=== PATIENT | female | born 1985 | race Caucasian/White ===

== ENCOUNTER 2021-03-02 13:42 | Inpatient (IN) | payer BC, OTHER ==
[2021-03-02] MEDS ORDERED: BUTORPHANOL TARTRATE 1 MG/ML VIAL IVPB PRN (16:35)
[2021-03-02 16:49] VITALS: BMI 28.9
[2021-03-02 16:57] LABS: BASO % 0.7 % (0-2.0); EOS % 0.3 % (0-4.5); HEMATOCRIT 35.5 % (32.4-45.2); HEMOGLOBIN 12.4 GM/dL (10.7-15.3); LYMPH % 30.6 % (8-40); MEAN CELL VOLUME 97.3 fl (80-96); MEAN PLT VOLUME 9.8 fl (7.5-11.1); MONO % 6.5 % (3.8-10.2); NEUT % 61.9 % (42.8-82.8); PLATELET COUNT 228 10^3/uL (134-434); RBC 3.65 M/mm3 (3.60-5.2); RDW 14.3 % (11.6-15.6)
[2021-03-02 17:05] LABS: INR 0.8 (0.83-1.09); PROTHROMBIN TIME (PATIENT) 9.8 SEC (9.7-13.0)
[2021-03-02 17:08] LABS: ACTIVATED PTT 23.5 SECONDS (25.2-36.5)
[2021-03-02 17:13] LABS: BLOOD UREA NITROGEN 14.4 mg/dL (7-18); CALCIUM 8.4 mg/dL (8.5-10.1)
[2021-03-02] MEDS: ELECTROLYTE-148 SOLN 1,000 ML IV SCH (19:35)
[2021-03-02] MEDS ORDERED: OXYTOCIN 30 UNITS in 0.9% NS 30 UNIT/500 ML INFUS.BAG IVPB ONE (20:58)
[2021-03-02] MEDS: OXYTOCIN 30 UNITS in 0.9% NS 30 UNIT/500 ML INFUS.BAG IVPB SCH (21:00)
[2021-03-02] MEDS ORDERED: AMPICILLIN SODIUM 2 GM VIAL ONE (22:55)
[2021-03-02] MEDS ORDERED: AMPICILLIN - 2 GM in SODIUM CHLORIDE 100 ML IVPB ONE (23:00)
[2021-03-02] MEDS ORDERED: FENTANYL/BUPIVACAINE/NS/PF - PCEA - 50 ML DISP.SYRIN EP ONE ×2 (23:07→23:22)
[2021-03-02] MEDS ORDERED: PCA PUMP NR ONE (23:22)
[2021-03-02] MEDS ORDERED: BUPIVACAINE HCL/PF 0.25% (2.5MG/ML) 10 ML VIAL ONE (23:24)
[2021-03-02] MEDS ORDERED: NALOXONE HCL 0.4 MG/ML VIAL IVPUSH PRN (23:26)
[2021-03-03] MEDS ORDERED: BUTORPHANOL TARTRATE 2 MG/ML VIAL ONE ×2 (00:12→04:17)
[2021-03-03] MEDS: BUTORPHANOL TARTRATE 1 MG/ML VIAL IVPB PRN ×2 (00:20→04:25)
[2021-03-03] MEDS: FENTANYL/BUPIVACAINE/NS/PF - PCEA - 50 ML DISP.SYRIN EP SCH ×2 (00:27→07:20)
[2021-03-03] MEDS ORDERED: AMPICILLIN SODIUM 1 GM VIAL ONE ×2 (02:58→06:24)
[2021-03-03] MEDS: AMPICILLIN - 1 GM in SODIUM CHLORIDE 100 ML IVPB SCH ×3 (03:00→11:00)
[2021-03-03] MEDS: ELECTROLYTE-148 SOLN 1,000 ML IV SCH ×2 (04:00→19:11)
[2021-03-03] MEDS ORDERED: BUPIVACAINE HCL/PF 0.25% (2.5MG/ML) 10 ML VIAL ONE (07:06)
[2021-03-03] MEDS ORDERED: FENTANYL/BUPIVACAINE/NS/PF - PCEA - 50 ML DISP.SYRIN EP ONE (07:07)
[2021-03-03] MEDS ORDERED: PCA PUMP NR ONE (07:07)
[2021-03-03] MEDS ORDERED: morphine SULFATE/Preservative Free 0.5 MG/ML (1cc Syringe) ONE (11:07)
[2021-03-03] MEDS ORDERED: SUCCINYLCHOLINE CHLORIDE 200 MG/10 ML SYRINGE ONE (11:07)
[2021-03-03] MEDS ORDERED: PHENYLEPHRINE HCL 10 MG/1 ML SINGLE DOSE VIAL ONE ×2 (11:07)
[2021-03-03] MEDS ORDERED: PROPOFOL 20 ML ONE (11:07)
[2021-03-03] MEDS ORDERED: ONDANSETRON 4 MG/2 ML VIAL ONE (11:08)
[2021-03-03] MEDS ORDERED: ceFAZolin SODIUM 1 GM VIAL ONE (11:08)
[2021-03-03] MEDS ORDERED: OXYTOCIN 10 UNIT/ML 10ML MDV ONE (11:33)
[2021-03-03 12:13] LABS: POC NITRAZINE NEG
[2021-03-03 12:14] LABS: POC NITRAZINE NEG
[2021-03-03] MEDS ORDERED: SIMETHICONE 80 MG TAB.CHEW (FP) PO PRN (12:19)
[2021-03-03] MEDS ORDERED: IBUPROFEN 800 MG/8 ML IJ IVPB PRN (12:19)
[2021-03-03] MEDS ORDERED: METHYLERGONOVINE MALEATE 0.2 MG/1 ML AMP IM PRN (12:19)
[2021-03-03] MEDS ORDERED: WITCH HAZEL 50% (TUCKS) 40 PAD/JAR PAD TP PRN (12:19)
[2021-03-03] MEDS ORDERED: BENZOCAINE 20% 57 GM BOTTLE TP PRN (12:19)
[2021-03-03] MEDS ORDERED: ACETAMINOPHEN 325 MG TABLET (FP) PO PRN (12:19)
[2021-03-03] MEDS ORDERED: BENZOCAINE 28 GM HEMORRHOIDAL OINTMENT PR PRN (12:19)
[2021-03-03] MEDS ORDERED: diphenhydrAMINE HCL 25 MG CAPSULE (FP) PO PRN (12:19)
[2021-03-03 12:22] LABS: CORD BASE EXCESS -10.1 mmol/L (0-2); CORD HCO3 20.6 mmHg (20-29); CORD PCO2 66.2 mmHg (30-78); CORD pH 7.111 (7.14-7.44)
[2021-03-03 12:26] LABS: CORD BASE EXCESS -7.9 mmol/L (0-2); CORD HCO3 18.6 mmHg (20-29); CORD PCO2 41.3 mmHg (30-78); CORD pH 7.271 (7.14-7.44)
[2021-03-03] MEDS ORDERED: morphine SULFATE/PF 1 MG/2 ML (2cc Syringe - QUVA) EP ONE (12:26)
[2021-03-03] MEDS ORDERED: ONDANSETRON 4 MG/2 ML VIAL IVPUSH PRN (12:26)
[2021-03-03] MEDS ORDERED: LACTATED RINGERS SOLUTION 1,000 ML IV SCH (12:30)
[2021-03-03] MEDS ORDERED: OXYTOCIN 20 UNITS in 0.9% NS 20 UNIT/1,000 ML INFUS.BAG IV SCH (12:30)
[2021-03-03] MEDS ORDERED: OXYTOCIN 30 UNITS in 0.9% NS 30 UNIT/500 ML INFUS.BAG IVPB ONE (13:57)
[2021-03-03] MEDS: OXYTOCIN 30 UNITS in 0.9% NS 30 UNIT/500 ML INFUS.BAG IVPB SCH (19:43)
[2021-03-04] MEDS: IBUPROFEN 600 MG TABLET (FP) PO PRN ×2 (05:21→16:43)
[2021-03-04 07:45] LABS: HEMOGLOBIN 9.8 GM/dL (10.7-15.3); MCH 34.4 pg (25.7-33.7); MEAN CELL VOLUME 98.1 fl (80-96); MEAN PLT VOLUME 9.5 fl (7.5-11.1); PLATELET COUNT 144 10^3/uL (134-434); RBC 2.85 M/mm3 (3.60-5.2); RDW 14.3 % (11.6-15.6); WHITE BLOOD COUNT 9.9 K/mm3 (4.0-10.0)
[2021-03-04] MEDS ORDERED: DIPHTH,PERTUSS(ACELL),TET 0.5 ML DISP.SYRIN IM ONE (10:00)
[2021-03-04] MEDS ORDERED: BISACODYL 10 MG SUPP.RECT PR PRN (12:19)
[2021-03-04] MEDS ORDERED: oxyCODONE HCL 5 MG TABLET PO PRN ×2 (12:19)
[2021-03-04] MEDS ORDERED: HYDROmorphone HCL 2 MG TABLET PO PRN (12:19)
[2021-03-05] MEDS: IBUPROFEN 600 MG TABLET (FP) PO PRN ×2 (03:03→12:23)
[2021-03-05 10:33] VITALS: BP 126/77; PULSE 74; TEMP 97.9
[2021-03-05] MEDS ORDERED: ACETAMINOPHEN/CAFFEINE/BUTALBITAL 1 TAB PO PRN (10:35)
[2021-03-05] MEDS ORDERED: SENNOSIDES/DOCUSATE COMBO (SENNA PLUS) TABLET (UD) PO PRN (22:00)
== END 2021-03-05 17:15 | disposition home or self-care (01) | DRG 788 ==
LOC: JDEL 13:42 → JLDR 15:10 → J3W 03-03 14:05
PROVIDERS: ADMIT Obstetrics & Gynecology; ATTEND Obstetrics & Gynecology
PROC: 10D00Z1 Extraction of Products of Conception, Low, Open Approach (ICD-10-PCS; principal; 2021-03-03)
DX: O48.0 Post-term pregnancy (principal); O42.02 Full-term premature rupture of membranes, onset of labor within 24 hours of rupture; O63.0 Prolonged first stage (of labor); O33.8 Maternal care for disproportion of other origin; Z3A.41 41 weeks gestation of pregnancy; Z37.0 Single live birth; Z86.79 Personal history of other diseases of the circulatory system
CPT/HCPCS: 36415; 36600; 59025; 80048; 82803; 82962; 83986-QW; 85025; 85027; 85610; 85730; 86780; 86850; 86900; 86901; 88307-TC; 90715; 94010; C9803; U0003; U0005